=== PATIENT | male | born 1995 | race Caucasian/White ===

== ENCOUNTER 2017-06-13 20:23 | Emergency (ER) | payer OTHER ==
[~2017-06-13] VITALS: Ht 190.5 cm; Wt 87.4 kg
[2017-06-13 20:35] VITALS: TEMP 36.7; Ht 190.5 cm; Wt 87.4 kg
--- NOTE | 2017-06-13 21:04 | DIAGNOSTIC IMAGING REPORT ---
CERVICAL SPINE 5 VIEWS HISTORY: Left-sided Neck pain COMPARISON: None. FINDINGS: The cervical spine is visualized from C1 through the superior endplate of T1. There is no fracture. No subluxation. Disc spaces are preserved. Prevertebral soft tissues and the atlantodens interval are intact. Mild to moderate dextroscoliosis. IMPRESSION: No fracture or subluxation within the cervical spine. Mild to moderate dextroscoliosis which could be positional. Electronically signed by: Nilson Lopez M.D. 06/13/2017 9:03 PM Dictated Date/Time: 06/13/2017 9:01 PM
[2017-06-13] MEDS ORDERED: IBUPROFEN 800 MG TAB PO STA (21:17)
[2017-06-13] MEDS ORDERED: CYCL10TA6 PO (21:20)
[2017-06-13] MEDS ORDERED: FLEXERIL HOME PACK 10 MG VIAL PO ONE (21:30)
[2017-06-13 21:49] VITALS: BP 118/87; PULSE 62; O2SAT 99
--- NOTE | 2017-06-13 23:11 | EMERGENCY ROOM VISIT NOTE ---
History First contact with patient: 20:38 Chief Complaint: NECK INJURY Stated Complaint: HURT NECK PLAYING FOOTBALL, FALL History of Present Illness The patient is a 22 year old male who presents to the Emergency Room with complaints of a sided neck pain after injuring his neck is happy and playing football. The patient reports that he fell backward and did a reverse somersault. The patient reports that he initially did not have any neck discomfort, but is now starting to notice significant tightness. He denies any headache, nausea, back pain, chest pain or shortness of breath. He denies any other extremity injuries, and rates his discomfort an 8 out of 10. Review of Systems 10 system review was performed and was negative except for pertinent positives and negatives as indicated in history of present illness Past Medical/Surgical History Medical Problems: (1) Kidney disease (2) Skin problem Surgical Problems: (1) No history of previous surgery Family History FH: cancer Social History Smoking Status: Current Some Day Smoker Alcohol Use: occasionally Marital Status: single Housing Status: lives with friends Occupation Status: [employer] student Current/Historical Medications Scheduled Cyclobenzaprine Hcl (Flexeril), 10 MG PO TID Physical Exam Vital Signs Date Time Temp Pulse Resp B/P (MAP) Pulse Ox O2 Delivery O2 Flow Rate FiO2 06/13/17 21:49 62 20 118/87 99 06/13/17 20:35 36.7 121 18 138/79 Room Air Physical Exam CONSTITUTIONAL: Healthy and well nourished. Alert and oriented X 3 with positive affect. Patient appears in mild to moderate discomfort. HEENT: Normocephalic, atraumatic. Pupils equal, round and reactive. No epistaxis, subconjunctival hemorrhage, hemotympanum, raccoon's eyes or Fam sign. NECK: Examination shows the patient holding his head and a lateral bend position. He has notable tenderness and rigidity of the left cervical paraspinous muscle and trapezius. He has no focal tenderness through the central cervical spine. RESPIRATORY: Clear to auscultation bilaterally with no wheezing, crackles, rhonchi or stridor. CARDIOVASCULAR: Regular rate and rhythm with no murmurs, rubs or gallops. GASTROINTESTINAL: Bowel sounds present in all quadrants. MUSCULOSKELETAL: The patient has no worsening discomfort with range of motion of the left shoulder. No tenderness to palpation through the central thoracic spine or intrascapular region. Equal hand travel director bilaterally. Distal pulses are intact. INTEGUMENTARY: No rash or other significant dermatologic conditions noted. NEUROLOGIC: Upper extremities are sensory intact. Medical Decision & Procedures ER Provider Diagnostic Interpretation: My interpretation of cervical spine x-rays does not show any acute fractures, subluxation or lordotic reversal. Radiologist report is as follows: CERVICAL SPINE 5 VIEWS HISTORY: Left-sided Neck pain COMPARISON: None. FINDINGS: The cervical spine is visualized from C1 through the superior endplate of T1. There is no fracture. No subluxation. Disc spaces are preserved. Prevertebral soft tissues and the atlantodens interval are intact. Mild to moderate dextroscoliosis. IMPRESSION: No fracture or subluxation within the cervical spine. Mild to moderate dextroscoliosis which could be positional. Medications Administered Medications (Trade) Dose Ordered Sig/Alva Route Start Time Stop Time Status Last Admin Dose Admin Ibuprofen (Motrin Tab) 800 mg ONE STAT PO 06/13/17 21:17 06/13/17 21:18 DC 06/13/17 21:40 800 MG Cyclobenzaprine HCl (FLEXERIL 10MG Home Pack) 1 homepack UD ONCE PO 06/13/17 21:30 06/13/17 21:31 DC 06/13/17 21:41 1 HOMEPACK ED Course Patient history and physical exam were performed. Nurse's notes were reviewed. Vital signs were reviewed and were normal. X-rays of the cervical spine were normal. The patient was advised that his history and clinical exam are consistent with an acute cervical spasm. The patient was encouraged to initially apply ice to the neck, then moist heat as needed. A soft collar was applied for additional relief. The patient was administered ibuprofen 800 mg, and provided a home pack and prescription for Flexeril. He was encouraged to alternate ibuprofen and Tylenol for baseline pain relief. The patient was instructed to follow-up with his family doctor or [facility] if symptoms are not improving within the next several days. The patient voiced understanding of all discharge instructions, was happy with plan of care , and rated his discomfort a 5 out of 10 at the conclusion of my exam. Medical Decision Medication Reconcilliation Current Medication List: was personally reviewed by me Blood Pressure Screening Patient's blood pressure: Normal blood pressure Impression Primary Impression: Cervical paraspinous muscle spasm Departure Information Prescriptions Cyclobenzaprine Hcl (FLEXERIL) 10 Mg Tab 10 MG PO TID for spasm, #10 TAB Prov: Chente Oreilly PA 06/13/17 Referrals [facility] (PCP) Patient Instructions [facility]
== END 2017-06-13 21:51 | disposition home or self-care (01) ==
LOC: C.EDB 20:25 → C.EDD 21:51
DX: M62.838 Other muscle spasm (principal); F17.200 Nicotine dependence, unspecified, uncomplicated

== ENCOUNTER 2019-02-11 12:22 | Observation (INO) ==
[2019-02-11] MEDS ORDERED: ONDANSETRON INJ 2 MG/ML 2 ML VIAL IV STA ×2 (13:12→15:06)
[2019-02-11] MEDS ORDERED: SODIUM CHLORIDE 0.9% 1000ML 1,000 ML IV SCH (13:15)
--- NOTE | 2019-02-11 13:46 | XRay Report ---
XR chest 1V portable HISTORY: fever COMPARISON: None. FINDINGS: The lungs are clear. Cardiac silhouette is normal in size. No pleural effusions. No pneumot horax. IMPRESSION: No acute process. Electronically signed by: Nilson Lopez M.D. 02/11/2019 1:44 PM
[2019-02-11 13:47] LABS: iSTAT Creatinine 0.8 mg/dl (0.6-1.3); iSTAT Ionized Calcium 1.07 mmol/l (1.12-1.32); iSTAT Potassium 3.3 mEq/L (3.3-5.0)
[2019-02-11 13:53] LABS: Basophils # (auto) 0.01 K/uL (0-0.2); Basophils % (auto) 0.1 %; Hematocrit (blood only) 41.5 % (42-52); Hemoglobin 14.9 g/dL (14.0-18.0); Immature Granulocytes # (auto) 0.05 K/uL (0.00-0.02); Immature Granulocytes % (auto) 0.6 %; Lymphocytes % (auto) 6.3 %; Mean Corpuscular Hgb Conc 35.9 g/dL (32-36); Mean Corpuscular Volume 89.6 fL (80-100); Mean Platelet Volume 9.4 fL (7.4-10.4); Monocytes # (auto) 1.23 K/uL (0.11-0.59); Monocytes % (auto) 15.6 %; Neutrophils # (auto) 6.11 K/uL (1.4-6.5); Neutrophils % (auto) 77.4 %; Platelet Count 176 K/uL (130-400); RDW Coefficient of Variation 12.6 % (11.5-14.5); Red Blood Count 4.63 M/uL (4.7-6.1)
[2019-02-11 14:00] LABS: Albumin Level 3.5 gm/dl (3.4-5.0); BUN Creatinine Ratio 7.6 (10-20); Calcium 8.9 mg/dl (8.5-10.1); Creatinine Clr Calc Pharmacy 152.6 ml/min; Potassium 3.4 mmol/L (3.5-5.1)
[2019-02-11 14:16] LABS: Albumin Globulin Ratio 0.9 (0.9-2); Bilirubin,Total 0.4 mg/dl (0.2-1); Globulin 3.8 gm/dl (2.5-4.0); Total Protein 7.3 gm/dl (6.4-8.2)
[2019-02-11] MEDS ORDERED: IOVERSOL 100ml IV PRN (14:24)
--- NOTE | 2019-02-11 14:39 | CT Scan Report ---
CT abd pelvis IV con only CT DOSE: 439.59 mGy.cm HISTORY: Pain fever TECHNIQUE: Multiaxial CT images of the abdomen and pelvis were performed following the use of intrave nous contrast. A dose lowering technique was utilized adhering to the principles of ALARA. COMPARISON STUDY: 02/09/2019 FINDINGS: Mildly progressive wall edematous change of the bulk of the colon. Minimal pericolonic infi ltrative change which is similar compared to the prior study. Again is consistent with a nonspecific colitis. No evidence for abscess collection or obstruction. No evidence for pneumatosis or free air. Liver spleen and pancreas remain unremarkable. Kidneys are negative for hydronephrosis. IMPRESSION: 1. Mildly progressive colitis compared to the prior study. 2. Wall thickening is somewhat progressive throughout. 3. Appearance continues to be consistent with generalized nonspecific colitis. 4. No evidence for abscess collection or obstruction. The above report was generated using voice recognition software. It may contain grammatical, syntax or spelling errors. Electronically signed by: Daryn Gamez M.D. 02/11/2019 2:37 PM
[2019-02-11 15:01] LABS: Appearance Urine Clear (Clear); Bilirubin Urine Negative (Negative); Blood Urine Negative (Negative); Color Urine Yellow; Glucose Urine UA Negative (Negative); Ketones Urine Negative (Negative); Leukocyte Esterase Urine Negative (Negative); Nitrite Urine Negative (Negative); Protein Urine Negative (Negative); Specific Gravity Urine 1.022 (1.000-1.030); Urobilinogen Urine Negative (Negative)
[2019-02-11] MEDS ORDERED: KETOROLAC TROMETHAMINE 15 MG/ML VIAL IV STA (15:06)
--- NOTE | 2019-02-11 15:14 | Gastrointestinal Consultation ---
Date of Consultation February 11, 2019 Assessment & Plan (1) Colitis, acute: 24 year old male w/ abdominal pain, nausea, vomiting, diarrhea and fevers x [address] imaging w/ colitis - Consult medicine for observation - Stool studies - Cdiff - CRP/ESR - Antiemetics PRN - Analgesia PRN - Hold on ABX until c.diff results Thank you for allowing us to participate in the care of this patient. Please call with any acute changes, questions or concerns. Please see addendum below with additional recommendation from my supervising physician. Supervising Physician Co-Signing Physician Notes I have performed a history and physical examination of this patient and reviewed the electronic medical record. Specifically, on physical examination abdomen is soft and diffusely tender. Although this is most likely an infectious enteritis, presence of persistent vomiting is indication for admission with IV fluids. I have discussed the case with ANDRES Diego. The above note reflects my findings, conclusions, and recommendations. Robbie Patterson MD History of Present Illness Reason for Consultation: abd pain, fever, chills, diarrhea Requesting Physician: Donald Attending Physician: Donald History of Present Illness 24 year old male with no past medical history who presents to the ED for the second time this week w/ worsening abd pain, nausea, vomiting, inability to tolerate PO, diarrhea and fevers - GI asked to evaluate given persistent symptoms. Pt was seen and evalated, chart reviewed. Endorses abrupt onset symptoms starting on 02/08. Lower abd pain, constant. Assocaited w/ diarrhea, vomiting. Pain is worse at night. Does not improve w/BMor vomiting. Emesis has been bilous. No black or bloody vomit. Has had loose frequent stools x 1 week. Brown/green. Denies black/bloody or mucoid stools. No rash, skin changes. Does have non-specific MSK pain as well. No sick contacts. Ct: Mildly progressive colitis compared to the prior study. Wall thickening is somewhat progressive throughout. Appearance continues to be consistent with generalized nonspecific colitis. No evidence for abscess collection or obstruction. EGD: none Colonoscopy: none Allergies Allergy/AdvReac Type Severity Reaction Status Date / Time No Known Allergies Allergy Unverified 02/11/19 14:45 Home Medications Home Medications Medication Instructions Recorded Confirmed Type acetaminophen [Tylenol Extra 1,000 mg PO TID PRN 02/09/19 02/11/19 History Strength] loperamide [Imodium A-D] 2 mg PO UD PRN 02/09/19 02/11/19 History multivitamin 1 tab PO QAM 02/09/19 02/11/19 History ondansetron 4 mg PO Q8H PRN #10 tab 02/09/19 02/11/19 Rx ustekinumab [Stelara] 1 dose SUBCUT Q3M 02/09/19 02/11/19 History Patient History Medical History Kidney disease (Acute) Social History Preferred Language: Tajik Feels Safe at Home: Yes Smoking Status: Never smoker Review of Systems Constitutional: + fever and + chills; no fatigue, no weakness and no weight loss Respiratory: no cough, no dyspnea, no pain on inspiration and no wheezing Cardiovascular: no chest pain, no radiating jaw, neck or arm pain, no dyspnea on exertion and no palpitations Gastrointestinal: + abdominal pain, + nausea, + vomiting, + cramping, + change in bowel habits and + diarrhea/loose stools; no belching, no bloating, no early satiety, no heartburn, no coffee ground emesis, no hematemesis, no pain with swallowing, no dysphagia, no excessive flatulence, no change in stools, no constipation, no fecal incontinence, no constant urge to pass stools, no blood in stools, no melena and no problem reported Physical Exam Constitutional: + acute distress and + ill appearing Respiratory: normal respiratory effort, lungs clear to auscultation Cardiovascular: RRR, no murmur, no edema Gastrointestinal (Abdomen): Inspection/Auscultation: abdomen normal to inspection and normal bowel sounds; abdomen not distended Percussion/Palpation: + abdomen tender and abdomen soft; no guarding, abdomen not rigid and no abdominal mass Skin: no rashes, warm and dry Results & Data Vital Signs (Past 12 Hours) Vital Signs Temp Pulse Pulse Resp BP BP Pulse Ox 02/11/19 15:05 39.5 C H 96 H 18 145/80 H 98 02/11/19 14:05 99 H 20 109/61 97 02/11/19 12:32 38.4 C H 117 H 18 131/73 97 Laboratory Results 02/11/19 02/11/19 02/11/19 Range/Units 14:45 14:45 13:33 WBC (4.8-10.8) K/uL RBC (4.7-6.1) M/uL Hgb (14.0-18.0) g/dL POC Hgb 15.0 (14.0-18.0) g/dl Hct (42-52) % POC Hct 44 (42-52) % MCV (80-100) fL MCH (25-34) pg MCHC (32-36) g/dL RDW Std Deviation (36.4-46.3) fL RDW Coeff of Mckayla (11.5-14.5) % Plt Count (130-400) K/uL MPV (7.4-10.4) fL Immature Gran % (Auto) % Neut % (Auto) % Lymph % (Auto) % [place] % (Auto) % Eos % (Auto) % Baso % (Auto) % Immature Gran # (Auto) (0.00-0.02) K/uL Neut # (Auto) (1.4-6.5) K/uL Lymph # (Auto) (1.2-3.4) K/uL [place] # (Auto) (0.11-0.59) K/uL Eos # (Auto) (0-0.5) K/uL Baso # (Auto) (0-0.2) K/uL ESR POC Sodium 135 (135-144) mEq/L Sodium (136-145) mmol/L POC Potassium 3.3 (3.3-5.0) mEq/L Potassium (3.5-5.1) mmol/L POC Chloride 96 L (101-112) mEq/L Chloride (98-107) mmol/L Carbon Dioxide (21-32) mmol/L POC Total CO2 22 L (24-31) mEq/l Anion Gap (3-11) POC Anion Gap 21.0 (16-25) mmol/L POC BUN 6 L (7-18) mg/dl BUN (7-18) mg/dl Creatinine (0.6-1.4) mg/dl POC Creatinine 0.8 (0.6-1.3) mg/dl Est Cr Clr Drug Dosing ml/min Est GFR ( Amer) Est GFR (Non-Af Amer) BUN/Creatinine Ratio (10-20) Glucose (70-99) mg/dl POC Glucose (other) 117 H (70-99) mg/dl Calcium (8.5-10.1) mg/dl POC Ioniz Calcium Edwin 1.07 L (1.12-1.32) mmol/l Total Bilirubin (0.2-1) mg/dl AST (15-37) U/L ALT (12-78) U/L Alkaline Phosphatase (45-117) U/L C-Reactive Protein Total Protein (6.4-8.2) gm/dl Albumin (3.4-5.0) gm/dl Globulin (2.5-4.0) gm/dl Albumin/Globulin Ratio (0.9-2) Lipase (73-393) U/L Urine Color Yellow Urine Appearance Clear (Clear) Urine pH 8.0 H (4.5-7.5) Ur Specific Blanca 1.022 (1.000-1.030) Urine Protein Negative (Negative) Urine Glucose (UA) Negative (Negative) Urine Ketones Negative (Negative) Urine Blood Negative (Negative) Urine Nitrite Negative (Negative) Urine Bilirubin Negative (Negative) Urine Urobilinogen Negative (Negative) Ur Leukocyte Esterase Negative (Negative) Monoscreen Pending 02/11/19 02/11/19 02/11/19 Range/Units 13:24 13:24 13:24 WBC (4.8-10.8) K/uL RBC (4.7-6.1) M/uL Hgb (14.0-18.0) g/dL POC Hgb (14.0-18.0) g/dl Hct (42-52) % POC Hct (42-52) % MCV (80-100) fL MCH (25-34) pg MCHC (32-36) g/dL RDW Std Deviation (36.4-46.3) fL RDW Coeff of Mckayla (11.5-14.5) % Plt Count (130-400) K/uL MPV (7.4-10.4) fL Immature Gran % (Auto) % Neut % (Auto) % Lymph % (Auto) % [place] % (Auto) % Eos % (Auto) % Baso % (Auto) % Immature Gran # (Auto) (0.00-0.02) K/uL Neut # (Auto) (1.4-6.5) K/uL Lymph # (Auto) (1.2-3.4) K/uL [place] # (Auto) (0.11-0.59) K/uL Eos # (Auto) (0-0.5) K/uL Baso # (Auto) (0-0.2) K/uL ESR Pending POC Sodium (135-144) mEq/L Sodium 134 L (136-145) mmol/L POC Potassium (3.3-5.0) mEq/L Potassium 3.4 L (3.5-5.1) mmol/L POC Chloride (101-112) mEq/L Chloride 102 (98-107) mmol/L Carbon Dioxide 23 (21-32) mmol/L POC Total CO2 (24-31) mEq/l Anion Gap 9.0 (3-11) POC Anion Gap (16-25) mmol/L POC BUN (7-18) mg/dl BUN 7 (7-18) mg/dl Creatinine 0.90 (0.6-1.4) mg/dl POC Creatinine (0.6-1.3) mg/dl Est Cr Clr Drug Dosing 152.6 ml/min Est GFR ( Amer) 139.0 Est GFR (Non-Af Amer) 120.0 BUN/Creatinine Ratio 7.6 L (10-20) Glucose 111 H (70-99) mg/dl POC Glucose (other) (70-99) mg/dl Calcium 8.9 (8.5-10.1) mg/dl POC Ioniz Calcium Edwin (1.12-1.32) mmol/l Total Bilirubin 0.4 (0.2-1) mg/dl AST 11 L (15-37) U/L ALT 20 (12-78) U/L Alkaline Phosphatase 51 (45-117) U/L C-Reactive Protein Cancelled Pending Total Protein 7.3 (6.4-8.2) gm/dl Albumin 3.5 (3.4-5.0) gm/dl Globulin 3.8 (2.5-4.0) gm/dl Albumin/Globulin Ratio 0.9 (0.9-2) Lipase 71 L (73-393) U/L Urine Color Urine Appearance (Clear) Urine pH (4.5-7.5) Ur Specific Blanca (1.000-1.030) Urine Protein (Negative) Urine Glucose (UA) (Negative) Urine Ketones (Negative) Urine Blood (Negative) Urine Nitrite (Negative) Urine Bilirubin (Negative) Urine Urobilinogen (Negative) Ur Leukocyte Esterase (Negative) Monoscreen 02/11/19 Range/Units 13:24 WBC 7.90 (4.8-10.8) K/uL RBC 4.63 L (4.7-6.1) M/uL Hgb 14.9 (14.0-18.0) g/dL POC Hgb (14.0-18.0) g/dl Hct 41.5 L (42-52) % POC Hct (42-52) % MCV 89.6 (80-100) fL MCH 32.2 (25-34) pg MCHC 35.9 (32-36) g/dL RDW Std Deviation 41.0 (36.4-46.3) fL RDW Coeff of Mckayla 12.6 (11.5-14.5) % Plt Count 176 (130-400) K/uL MPV 9.4 (7.4-10.4) fL Immature Gran % (Auto) 0.6 % Neut % (Auto) 77.4 % Lymph % (Auto) 6.3 % [place] % (Auto) 15.6 % Eos % (Auto) 0.0 % Baso % (Auto) 0.1 % Immature Gran # (Auto) 0.05 H (0.00-0.02) K/uL Neut # (Auto) 6.11 (1.4-6.5) K/uL Lymph # (Auto) 0.50 L (1.2-3.4) K/uL [place] # (Auto) 1.23 H (0.11-0.59) K/uL Eos # (Auto) 0.00 (0-0.5) K/uL Baso # (Auto) 0.01 (0-0.2) K/uL ESR POC Sodium (135-144) mEq/L Sodium (136-145) mmol/L POC Potassium (3.3-5.0) mEq/L Potassium (3.5-5.1) mmol/L POC Chloride (101-112) mEq/L Chloride (98-107) mmol/L Carbon Dioxide (21-32) mmol/L POC Total CO2 (24-31) mEq/l Anion Gap (3-11) POC Anion Gap (16-25) mmol/L POC BUN (7-18) mg/dl BUN (7-18) mg/dl Creatinine (0.6-1.4) mg/dl POC Creatinine (0.6-1.3) mg/dl Est Cr Clr Drug Dosing ml/min Est GFR ( Amer) Est GFR (Non-Af Amer) BUN/Creatinine Ratio (10-20) Glucose (70-99) mg/dl POC Glucose (other) (70-99) mg/dl Calcium (8.5-10.1) mg/dl POC Ioniz Calcium Edwin (1.12-1.32) mmol/l Total Bilirubin (0.2-1) mg/dl AST (15-37) U/L ALT (12-78) U/L Alkaline Phosphatase (45-117) U/L C-Reactive Protein Total Protein (6.4-8.2) gm/dl Albumin (3.4-5.0) gm/dl Globulin (2.5-4.0) gm/dl Albumin/Globulin Ratio (0.9-2) Lipase (73-393) U/L Urine Color Urine Appearance (Clear) Urine pH (4.5-7.5) Ur Specific Blanca (1.000-1.030) Urine Protein (Negative) Urine Glucose (UA) (Negative) Urine Ketones (Negative) Urine Blood (Negative) Urine Nitrite (Negative) Urine Bilirubin (Negative) Urine Urobilinogen (Negative) Ur Leukocyte Esterase (Negative) Monoscreen
[2019-02-11 15:23] LABS: C Reactive Protein 7.99 mg/dl (0-0.29)
--- NOTE | 2019-02-11 15:49 | Emergency Department Note ---
Entered by Eda Moore acting as a scribe for Robbie Bennett DO History of Present Illness General Chief complaint: Fever Stated complaint: FEVER - VOMITING - NAUSEA - DIARRHEA (4TH DAY) Time Seen by Provider: 02/11/19 13:04 Source: patient History of Present Illness Provider complaint: nausea and vomiting Onset (ago): hour(s) (0130 this morning) Location: left and right Maximum Pain Intensity: 7 Associated symptoms: + denies other symptoms (denies back pain or blood in urine ), + fever/chills and + other (diarrhea) The patient is a 24 year old male who presents to the Emergency Department with complaints of nausea and vomiting beginning at 0130 this morning. The patient rates his discomfort at a 7/10. He states that 5 days ago he developed a fever, nausea, vomiting, and diarrhea. The patient states that he has been unable to keep fluids down. He reports that he last vomited 1 hour ago and last had an episode of diarrhea 3 days ago. He reports having abdominal pain but denies having back pain or blood in his urine. The patient states that he traveled to [place] 2 months ago but otherwise denies recent travel. He reports no active medical problems and states that he does not take medications daily. He reports that he drinks twice per week but denies tobacco use. The patient states that he did not see S today. Home Medications Home Medications Medication Instructions Recorded Confirmed Type acetaminophen [Tylenol Extra 1,000 mg PO TID PRN 02/09/19 02/11/19 History Strength] loperamide [Imodium A-D] 2 mg PO UD PRN 02/09/19 02/11/19 History multivitamin 1 tab PO QAM 02/09/19 02/11/19 History ondansetron 4 mg PO Q8H PRN #10 tab 02/09/19 02/11/19 Rx ustekinumab [Stelara] 1 dose SUBCUT Q3M 02/09/19 02/11/19 History Allergies Allergy/AdvReac Type Severity Reaction Status Date / Time No Known Allergies Allergy Unverified 02/11/19 14:45 Past Med/Surg History Medical History Kidney disease (Acute) Social History Preferred Language: Bots[place] Feels Safe at Home: Yes Smoking Status: Never smoker Review of Systems See HPI for pertinent positives & negatives. and A total of 10 systems reviewed and were otherwise negative Physical Exam Vital Signs Vital Signs - 24 hr 02/11/19 12:32 02/11/19 14:05 02/11/19 15:05 Temperature 38.4 C H 39.5 C H Temperature Source Oral Oral Sepsis Recent Fever Within 48 Hours Yes Sepsis New/Unexplained Change in Mental Status No Sepsis Action Taken by Nursing No Action Required Pulse Rate 117 H Pulse Rate [Apical] 99 H 96 H Respiratory Rate 18 20 18 Respiratory Effort / Characteristics Non-Labored Spontaneous Respiratory Depth Normal Respiratory Pattern Regular Blood Pressure 131/73 Blood Pressure [Left Arm] 109/61 145/80 H Blood Pressure Mean 92 Blood Pressure Mean [Left Arm] 77 101 Blood Pressure Position Sitting Pulse Oximetry 97 97 98 Oxygen Delivery Method Room Air Room Air Room Air 02/11/19 15:58 Temperature Temperature Source Sepsis Recent Fever Within 48 Hours Sepsis New/Unexplained Change in Mental Status Sepsis Action Taken by Nursing Pulse Rate Pulse Rate [Apical] 99 H Respiratory Rate 20 Respiratory Effort / Characteristics Respiratory Depth Respiratory Pattern Blood Pressure Blood Pressure [Left Arm] 136/78 Blood Pressure Mean Blood Pressure Mean [Left Arm] 97 Blood Pressure Position Pulse Oximetry 95 Oxygen Delivery Method Room Air GENERAL: Patient is awake, alert, and in no acute distress.Patient is resting comfortably and showing no signs of anxiety EYES: The conjunctivae are clear. The pupils are round and reactive. EARS, NOSE, MOUTH AND THROAT: The nose is without any evidence of any deformity. Mucous membranes are moist.Tongue is midline NECK: The neck is nontender and supple. RESPIRATORY: Normal respiratory effort is noted. There is no evidence of wheezin g rhonchi or rales to auscultation. CARDIOVASCULAR: Tachycardic rate and regular rhythm noted. There no murmurs rubs or gallops normal S1 normal S2 GASTROINTESTINAL: The abdomen is soft with lower abdominal tenderness to palpation. No guarding or ridigity. Bowel sounds are present in all quadrants. Abdomen is nontender. MUSCULOSKELETAL/EXTREMITIES: There is no evidence of gross deformity. Full range of motion is noted in the hips and shoulders. SKIN: There is no obvious evidence of any rash. There are no petechiae, pallor or cyanosis noted. NEUROLOGIC: Patient is awake alert and oriented x3. Strength is symmetric. Patellar reflexes are 2+ bilaterally. Course 1306: The patient was evaluated in room A2. A history and physical were performed. 1454: I discussed the patient's case with Teresa JAEGER who will come see the patient. She also recommended stool studies. 1522: Dr. Yost will come see the patient. 1547: D/W Jess Pang PA-C. [facility] hospitalist group will evaluate the patient in the emergency department for further management and disposition. Consultations Consultation #1: Teresa JAEGER Time: 14:54 Consultation #2: Jess Pang PA-C Time: 15:46 Administered Medications Ioversol (Optiray 320 100ml) 94 ml IV ONCE PRN PRN Reason: Interaction Checking Stop: 02/15/19 14:23 Last Admin: 02/11/19 14:25 Dose: 94 ml Documented by: [id number] Discontinued Medications Sodium Chloride (Nss 1000ml) 1,000 mls @ 999 mls/hr IV .Q1H1M BILLIE Stop: 02/11/19 14:15 Last Infusion: 02/11/19 14:30 Dose: 0 mls/hr Documented by: [id number] Admin: 02/11/19 13:29 Dose: 999 mls/hr Documented by: [id number] Ketorolac Tromethamine (Toradol) 15 mg IV NOW STA Stop: 02/11/19 15:07 Last Admin: 02/11/19 15:11 Dose: 15 mg Documented by: [id number] Ondansetron HCl (Zofran) 4 mg IV NOW STA Stop: 02/11/19 13:13 Last Admin: 02/11/19 13:29 Dose: 4 mg Documented by: [id number] Ondansetron HCl (Zofran) 4 mg IV NOW STA Stop: 02/11/19 15:07 Last Admin: 02/11/19 15:11 Dose: 4 mg Documented by: [id number] Medical Decision Making Differential Diagnosis Differential diagnosis: Etiologies such as gastroenteritis, food borne illness, infections, appendicitis, diverticulitis, inflammatory bowel disease, obstruction, GI bleed, biliary pathology, cardiac process, intracranial process, as well as others were entertained. Medical Records Attestation: I reviewed the patient's medical records. Home Medications Current Medication List: was personally reviewed by me Laboratory Data Attestation: I reviewed the patient's lab results. Result diagrams: 02/11/19 13:24 02/11/19 13:24 Lab Results 02/11/19 02/11/19 02/11/19 Range/Units 13:24 13:24 13:24 WBC 7.90 (4.8-10.8) K/uL RBC 4.63 L (4.7-6.1) M/uL Hgb 14.9 (14.0-18.0) g/dL POC Hgb (14.0-18.0) g/dl Hct 41.5 L (42-52) % POC Hct (42-52) % MCV 89.6 (80-100) fL MCH 32.2 (25-34) pg MCHC 35.9 (32-36) g/dL RDW Std Deviation 41.0 (36.4-46.3) fL RDW Coeff of Mckayla 12.6 (11.5-14.5) % Plt Count 176 (130-400) K/uL MPV 9.4 (7.4-10.4) fL Immature Gran % (Auto) 0.6 % Neut % (Auto) 77.4 % Lymph % (Auto) 6.3 % [place] % (Auto) 15.6 % Eos % (Auto) 0.0 % Baso % (Auto) 0.1 % Immature Gran # (Auto) 0.05 H (0.00-0.02) K/uL Neut # (Auto) 6.11 (1.4-6.5) K/uL Lymph # (Auto) 0.50 L (1.2-3.4) K/uL [place] # (Auto) 1.23 H (0.11-0.59) K/uL Eos # (Auto) 0.00 (0-0.5) K/uL Baso # (Auto) 0.01 (0-0.2) K/uL ESR 21 H (0-14) mm/hr POC Sodium (135-144) mEq/L Sodium 134 L (136-145) mmol/L POC Potassium (3.3-5.0) mEq/L Potassium 3.4 L (3.5-5.1) mmol/L POC Chloride (101-112) mEq/L Chloride 102 (98-107) mmol/L Carbon Dioxide 23 (21-32) mmol/L POC Total CO2 (24-31) mEq/l Anion Gap 9.0 (3-11) POC Anion Gap (16-25) mmol/L POC BUN (7-18) mg/dl BUN 7 (7-18) mg/dl Creatinine 0.90 (0.6-1.4) mg/dl POC Creatinine (0.6-1.3) mg/dl Est Cr Clr Drug Dosing 152.6 ml/min Est GFR ( Amer) 139.0 Est GFR (Non-Af Amer) 120.0 BUN/Creatinine Ratio 7.6 L (10-20) Glucose 111 H (70-99) mg/dl POC Glucose (other) (70-99) mg/dl Calcium 8.9 (8.5-10.1) mg/dl POC Ioniz Calcium Edwin (1.12-1.32) mmol/l Total Bilirubin 0.4 (0.2-1) mg/dl AST 11 L (15-37) U/L ALT 20 (12-78) U/L Alkaline Phosphatase 51 (45-117) U/L C-Reactive Protein 7.99 H (0-0.29) mg/dl Total Protein 7.3 (6.4-8.2) gm/dl Albumin 3.5 (3.4-5.0) gm/dl Globulin 3.8 (2.5-4.0) gm/dl Albumin/Globulin Ratio 0.9 (0.9-2) Lipase 71 L (73-393) U/L Urine Color Urine Appearance (Clear) Urine pH (4.5-7.5) Ur Specific [place] (1.000-1.030) Urine Protein (Negative) Urine Glucose (UA) (Negative) Urine Ketones (Negative) Urine Blood (Negative) Urine Nitrite (Negative) Urine Bilirubin (Negative) Urine Urobilinogen (Negative) Ur Leukocyte Esterase (Negative) Monoscreen (Negative) 02/11/19 02/11/19 02/11/19 Range/Units 13:24 13:33 14:45 WBC (4.8-10.8) K/uL RBC (4.7-6.1) M/uL Hgb (14.0-18.0) g/dL POC Hgb 15.0 (14.0-18.0) g/dl Hct (42-52) % POC Hct 44 (42-52) % MCV (80-100) fL MCH (25-34) pg MCHC (32-36) g/dL RDW Std Deviation (36.4-46.3) fL RDW Coeff of Mckayla (11.5-14.5) % Plt Count (130-400) K/uL MPV (7.4-10.4) fL Immature Gran % (Auto) % Neut % (Auto) % Lymph % (Auto) % [place] % (Auto) % Eos % (Auto) % Baso % (Auto) % Immature Gran # (Auto) (0.00-0.02) K/uL Neut # (Auto) (1.4-6.5) K/uL Lymph # (Auto) (1.2-3.4) K/uL [place] # (Auto) (0.11-0.59) K/uL Eos # (Auto) (0-0.5) K/uL Baso # (Auto) (0-0.2) K/uL ESR (0-14) mm/hr POC Sodium 135 (135-144) mEq/L Sodium (136-145) mmol/L POC Potassium 3.3 (3.3-5.0) mEq/L Potassium (3.5-5.1) mmol/L POC Chloride 96 L (101-112) mEq/L Chloride (98-107) mmol/L Carbon Dioxide (21-32) mmol/L POC Total CO2 22 L (24-31) mEq/l Anion Gap (3-11) POC Anion Gap 21.0 (16-25) mmol/L POC BUN 6 L (7-18) mg/dl BUN (7-18) mg/dl Creatinine (0.6-1.4) mg/dl POC Creatinine 0.8 (0.6-1.3) mg/dl Est Cr Clr Drug Dosing ml/min Est GFR ( Amer) Est GFR (Non-Af Amer) BUN/Creatinine Ratio (10-20) Glucose (70-99) mg/dl POC Glucose (other) 117 H (70-99) mg/dl Calcium (8.5-10.1) mg/dl POC Ioniz Calcium Edwin 1.07 L (1.12-1.32) mmol/l Total Bilirubin (0.2-1) mg/dl AST (15-37) U/L ALT (12-78) U/L Alkaline Phosphatase (45-117) U/L C-Reactive Protein Cancelled (0-0.29) mg/dl Total Protein (6.4-8.2) gm/dl Albumin (3.4-5.0) gm/dl Globulin (2.5-4.0) gm/dl Albumin/Globulin Ratio (0.9-2) Lipase (73-393) U/L Urine Color Urine Appearance (Clear) Urine pH (4.5-7.5) Ur Specific [place] (1.000-1.030) Urine Protein (Negative) Urine Glucose (UA) (Negative) Urine Ketones (Negative) Urine Blood (Negative) Urine Nitrite (Negative) Urine Bilirubin (Negative) Urine Urobilinogen (Negative) Ur Leukocyte Esterase (Negative) Monoscreen Negative (Negative) 02/11/19 Range/Units 14:45 WBC (4.8-10.8) K/uL RBC (4.7-6.1) M/uL Hgb (14.0-18.0) g/dL POC Hgb (14.0-18.0) g/dl Hct (42-52) % POC Hct (42-52) % MCV (80-100) fL MCH (25-34) pg MCHC (32-36) g/dL RDW Std Deviation (36.4-46.3) fL RDW Coeff of Mckayla (11.5-14.5) % Plt Count (130-400) K/uL MPV (7.4-10.4) fL Immature Gran % (Auto) % Neut % (Auto) % Lymph % (Auto) % [place] % (Auto) % Eos % (Auto) % Baso % (Auto) % Immature Gran # (Auto) (0.00-0.02) K/uL Neut # (Auto) (1.4-6.5) K/uL Lymph # (Auto) (1.2-3.4) K/uL [place] # (Auto) (0.11-0.59) K/uL Eos # (Auto) (0-0.5) K/uL Baso # (Auto) (0-0.2) K/uL ESR (0-14) mm/hr POC Sodium (135-144) mEq/L Sodium (136-145) mmol/L POC Potassium (3.3-5.0) mEq/L Potassium (3.5-5.1) mmol/L POC Chloride (101-112) mEq/L Chloride (98-107) mmol/L Carbon Dioxide (21-32) mmol/L POC Total CO2 (24-31) mEq/l Anion Gap (3-11) POC Anion Gap (16-25) mmol/L POC BUN (7-18) mg/dl BUN (7-18) mg/dl Creatinine (0.6-1.4) mg/dl POC Creatinine (0.6-1.3) mg/dl Est Cr Clr Drug Dosing ml/min Est GFR ( Amer) Est GFR (Non-Af Amer) BUN/Creatinine Ratio (10-20) Glucose (70-99) mg/dl POC Glucose (other) (70-99) mg/dl Calcium (8.5-10.1) mg/dl POC Ioniz Calcium Edwin (1.12-1.32) mmol/l Total Bilirubin (0.2-1) mg/dl AST (15-37) U/L ALT (12-78) U/L Alkaline Phosphatase (45-117) U/L C-Reactive Protein (0-0.29) mg/dl Total Protein (6.4-8.2) gm/dl Albumin (3.4-5.0) gm/dl Globulin (2.5-4.0) gm/dl Albumin/Globulin Ratio (0.9-2) Lipase (73-393) U/L Urine Color Yellow Urine Appearance Clear (Clear) Urine pH 8.0 H (4.5-7.5) Ur Specific [place] 1.022 (1.000-1.030) Urine Protein Negative (Negative) Urine Glucose (UA) Negative (Negative) Urine Ketones Negative (Negative) Urine Blood Negative (Negative) Urine Nitrite Negative (Negative) Urine Bilirubin Negative (Negative) Urine Urobilinogen Negative (Negative) Ur Leukocyte Esterase Negative (Negative) Monoscreen (Negative) Imaging Data Radiologist's Impression: Radiology results as stated below per my review and the radiologist's interpretation: XR chest 1V portable HISTORY: fever COMPARISON: None. FINDINGS: The lungs are clear. Cardiac silhouette is normal in size. No pleural effusions. No pneumothorax. IMPRESSION: No acute process. Electronically signed by: Nilson Lopez M.D. 02/11/2019 1:[address] abd pelvis IV con only CT DOSE: 439.59 mGy.cm HISTORY: Pain fever TECHNIQUE: Multiaxial CT images of the abdomen and pelvis were performed following the use of intravenous contrast. A dose lowering technique was utilized adhering to the principles of ALARA. COMPARISON STUDY: 02/09/2019 FINDINGS: Mildly progressive wall edematous change of the bulk of the colon. Minimal pericolonic infiltrative change which is similar compared to the prior study. Again is consistent with a nonspecific colitis. No evidence for abscess collection or obstruction. No evidence for pneumatosis or free air. Liver spleen and pancreas remain unremarkable. Kidneys are negative for hy dronephrosis. IMPRESSION: 1. Mildly progressive colitis compared to the prior study. 2. Wall thickening is somewhat progressive throughout. 3. Appearance continues to be consistent with generalized nonspecific colitis. 4. No evidence for abscess collection or obstruction. The above report was generated using voice recognition software. It may contain grammatical, syntax or spelling errors. Electronically signed by: Daryn Gamez M.D. 02/11/2019 2:37 PM Blood Pressure Blood Pressure Findings: Normal blood pressure MDM Narrative The patient is a 24-year-old male who presented to the emergency department for a second time this week for an evaluation of the nausea vomiting loose bowel mo vements and now worsening abdominal pain and fever. The patient was seen previously in our emergency department for similar complaints. At that time he was feeling much better and was discharged home. The patient did have an elevated temperature in the emergency department today. For this reason a repeat CAT scan was obtained to ensure there was no changes which may require surgical intervention. He did have significant tenderness but he had no guarding. I discussed the patient's laboratory and radiographic studies with him. I also discussed his case with the on-call [facility] hospitalist group. They have agreed to evaluate the patient in the emergency department for further management and disposition. The patient was also evaluated by the [facility] gastroenterology group. They do feel the patient's condition may warrant further inpatient work-up as well as treatment. I offered to discuss the patient's findings with his family members but at this time he would prefer to relay the findings to his parents on his own. Impression & Plan Nausea and vomiting, Colitis, Dehydration, Fever Discharge Plan Visit Data Chief Complaint: Fever Stated Complaint: FEVER - VOMITING - NAUSEA - DIARRHEA (4TH DAY) ED Provider: Robbie Bennett Discharge Problem: Nausea and vomiting, Colitis, Dehydration, Fever Forms Stand Alone Forms: My [facility] Prescriptions Prescriptions: No Action acetaminophen [Tylenol Extra Strength] 500 mg Tablet 1,000 mg PO TID PRN (Reason: Fever Or Pain) RF: 0 Stelara 45 mg/0.5 mL syringe 1 dose subcut Q3M RF: 0 multivitamin Tablet 1 tab PO QAM RF: 0 loperamide [Imodium A-D] 1 mg/7.5 mL Liquid 2 mg PO UD PRN (Reason: Diarrhea) RF: 0 ondansetron 4 mg tablet,disintegrating 4 mg PO Q8H PRN (Reason: nausea and vomiting) Qty: 10 RF: 0 Discharge Problem: Nausea and vomiting Qualifiers: Vomiting type: unspecified Vomiting Intractability: intractable Qualified Code(s): R11.2 - Nausea with vomiting, unspecified Fever Qualifiers: Fever type: unspecified Qualified Code(s): R50.9 - Fever, unspecified The scribe's documentation has been prepared under my direction and personally reviewed by me in its entirety. I confirm that the note above accurately reflects all work, treatment, procedures, and medical decision making performed by me.
--- NOTE | 2019-02-11 17:17 | History & Physical Report ---
Date of Service February 11, 2019 Assessment & Plan (1) Nonspecific colitis: (2) Fever: (3) Nausea and vomiting: This is a 24yo M with a PMH of psoriasis who is presenting with lower abdominal pain, fever, chills, nausea and vomiting x 5 days and was found to have non-specific colitis. -Febrile at 39.5, tachycardic at 117, non-toxic appearance -No leukocytosis, potassium slightly low at 3.3, LFTs unremarkable -CT abd/pelvis with mildly progressing colitis with wall thickening somewhat p rogressively throughout -Evaluated by GI service, who suspect infectious colitis -Stool cultures, C. diff, blood cultures ordered. CPR, ESR ordered. -No antibiotics until C diff results, per GI -IV fluids (NSS + 20 mEq kcl), antiemetics, clear liquids as tolerated -NPO after midnight in case of scope (4) Psoriasis: Stelara injection Q3 months -Due in 10 days DVT Ppx: Teds Code status: FULL PCP: Unassigned Dispo: Observaton med/surg. Plan to return home once medically stable. Patient seen in collaboration with Dr. Stevens. Please see addendum. History of Present Illness Chief Complaint: Lower abd pain, nausea, vomiting, diarrhea Primary Care Provider: NO PCP This is a 24yo M with a PMH of psoriasis who is presenting with lower abdominal pain, fever, chills, nausea and vomiting x 5 days. Patient developed sudden onset symptoms of fever and diarrhea 5 days ago, followed by nausea, vomiting and cramping abdominal pain. Episodes of emesis are bilious and diarrhea is described as clear, no blood or mucus. Experiencing cramping lower abdominal pain that is worse prior to defecation and then improves. Was seen in ED 2 days ago and was given IV fluids and antiemetics. [place] better yesterday until 9pm, when fever returned. Endorsing 25 small episodes of diarrhea since last night. Presenting with fever of 39.5 and tachycardia of 117. No leukocytosis. Repeat CT abd/pelvis with mildly progressing colitis with wall thickening somewhat progressively throughout. Non-specific colitis, no evidence of abscess or obstruction. Was evaluated by GI service, who want to observe patient overnight and hydrate while obtaining stool and c. diff cultures. Feel that most likely this is infectious enterocolitis. Denies lightheadedness, headache, cough, chest pain, SOB, dysuria. Allergies Allergy/AdvReac Type Severity Reaction Status Date / Time No Known Allergies Allergy Unverified 02/11/19 14:45 Home Medications Home Medications Medication Instructions Recorded Confirmed Type acetaminophen [Tylenol Extra 1,000 mg PO TID PRN 02/09/19 02/11/19 History Strength] loperamide [Imodium A-D] 2 mg PO UD PRN 02/09/19 02/11/19 History multivitamin 1 tab PO QAM 02/09/19 02/11/19 History ondansetron 4 mg PO Q8H PRN #10 tab 02/09/19 02/11/19 Rx ustekinumab [Stelara] 1 dose SUBCUT Q3M 02/09/19 02/11/19 History Past Med/Surg History Family History Other No pertinent family history Social History Preferred Language: Kinyarwanda Communication Ability: Effective Beliefs That Will Affect Care: None Current Living Situation: Other Current Living Situation Comment: Roommates current occupational status: student Other Information That Helps Us Care for You: No Feels Safe at Home: Yes Safety Concerns: Feels Safe At This Time Smoking Status: Never smoker Hx Alcohol Use: Yes Alcohol type: beer Hx Substance Use: No Review of Systems Review of Systems: At least ten systems reviewed and negative except as noted in the HPI. Physical Exam Physical Exam: General Appearance: WD/WN, appears acutely ill Head: normocephalic, atraumatic Eyes: normal inspection, PERRL, EOMI ENT: hearing grossly normal, pharynx normal (dry mucous membranes) Neck: supple, no JVD, no adenopathy Respiratory/Chest: lungs clear to auscultation. No wheezes, rales or rhonci. No respiratory distress or accessory muscle use Cardiovascular: regular rate, rhythm, no murmur, normal peripheral pulses Abdomen/GI: normal bowel sounds, soft, tender to palpation in LLQ, RLQ. No guarding Extremities/Musculoskelatal: normal inspection, no calf tenderness, normal capillary refill, no pedal edema Neurologic/Psych: alert, normal mood/affect, oriented x 3 Skin: normal color, warm/dry Results & Data Vital Signs (Past 12 Hours) Vital Signs Temp Pulse Pulse Resp BP BP Pulse Ox 02/11/19 15:58 99 H 20 136/78 95 02/11/19 15:05 39.5 C H 96 H 18 145/80 H 98 02/11/19 14:05 99 H 20 109/61 97 02/11/19 12:32 38.4 C H 117 H 18 131/73 97 Laboratory Results Short CBC 02/11/19 Range/Units 13:24 WBC 7.90 (4.8-10.8) K/uL Hgb 14.9 (14.0-18.0) g/dL Hct 41.5 L (42-52) % Plt Count 176 (130-400) K/uL BMP 02/11/19 13:24 Sodium 134 L Potassium 3.4 L Chloride 102 Carbon Dioxide 23 BUN 7 Creatinine 0.90 Glucose 111 H Calcium 8.9 Liver Function 02/11/19 Range/Units 13:24 Total Bilirubin 0.4 (0.2-1) mg/dl AST 11 L (15-37) U/L ALT 20 (12-78) U/L Alkaline Phosphatase 51 (45-117) U/L Albumin 3.5 (3.4-5.0) gm/dl Urine 02/11/19 Range/Units 14:45 Urine Color Yellow Urine Appearance Clear (Clear) Urine pH 8.0 H (4.5-7.5) Ur Specific [place] 1.022 (1.000-1.030) Urine Protein Negative (Negative) Urine Glucose (UA) Negative (Negative) Diagnostic Findings CXR: IMPRESSION: No acute process. CT abd/pelvis: IMPRESSION: 1. Mildly progressive colitis compared to the prior study. 2. Wall thickening is somewhat progressive throughout. 3. Appearance continues to be consistent with generalized nonspecific colitis. 4. No evidence for abscess collection or obstruction. Supervising Physician Co-Signing Physician Notes Patient is a 24-year-old male with history of psoriasis presents with history of lower abdominal pain, fever, chills, nausea and vomiting since 5 days duration. Denies any history of blood in stools. Please review HPI for complete details of presentation. CT abdomen suggestive of mildly progressive colitis compared to prior study, wall thickening, findings suggestive of nonspecific colitis, no evidence of abscess collection or obstruction. Stool for C. difficile is negative. Patient on exam is moderately built and nourished, no apparent distress, normocephalic atraumatic, lungs are clear to auscultation, S1-S2, tachycardia, no murmur, abdomen soft, generalized tenderness, no guarding or rigidity, no pedal edema, grossly no neurological focal deficits. Patient is admitted for management of acute colitis. Will start on IV fluids, IV antibiotics. Appreciate gastroenterology input and recommendations. Clear liquid diet, advance as tolerated. GI is consulted. I personally reviewed the record. Patient is interviewed and examined at bedside. Patient's care is coordinated with Sonia Lopez PA-C. Please refer to the documentation above for details of patient's presentation and for discussion of other issues. (1) Fever Fever type: unspecified Qualified Code(s): R50.9 - Fever, unspecified (2) Nausea and vomiting Vomiting Intractability: intractable Vomiting type: unspecified Qualified Code(s): R11.2 - Nausea with vomiting, unspecified
[2019-02-11] MEDS ORDERED: ONDANSETRON INJ 2 MG/ML 2 ML VIAL ONE (18:33)
[2019-02-11] MEDS ORDERED: ONDANSETRON INJ 2 MG/ML 2 ML VIAL IV PRN (19:17)
[2019-02-11] MEDS ORDERED: ACETAMINOPHEN 500 MG TAB PO PRN (19:17)
[2019-02-11] MEDS: NSS + 20MEQ KCL 20 MEQ/1,000 ML BAG IV SCH (19:32)
[2019-02-11] MEDS ORDERED: PROMETHAZINE HCL 6.25 MG in SODIUM CHLORIDE 0.9% 50 ML IV PRN (19:52)
[2019-02-11] MEDS ORDERED: ACETAMINOPHEN 65 ML IV PRN (20:00)
[2019-02-12] MEDS: metroNIDAZOLE 500 MG/100 ML BAG IV SCH ×3 (00:11→17:34)
[2019-02-12] MEDS: CIPROFLOXACIN 400 MG/200 ML BAG IV SCH ×2 (00:12→11:25)
[2019-02-12 05:50] LABS: Hematocrit (blood only) 38.5 % (42-52); Hemoglobin 13.7 g/dL (14.0-18.0); Mean Corpuscular Hgb Conc 35.6 g/dL (32-36); Mean Corpuscular Volume 90.2 fL (80-100); Platelet Count 178 K/uL (130-400); RDW Coefficient of Variation 12.9 % (11.5-14.5); RDW Standard Deviation 42.4 fL (36.4-46.3); Red Blood Count 4.27 M/uL (4.7-6.1); White Blood Count 6.26 K/uL (4.8-10.8)
[2019-02-12] MEDS: NSS + 20MEQ KCL 20 MEQ/1,000 ML BAG IV SCH ×2 (06:13→18:19)
[2019-02-12 06:17] LABS: Albumin Level 2.8 gm/dl (3.4-5.0); BUN Creatinine Ratio 8.4 (10-20); Calcium 7.9 mg/dl (8.5-10.1); Creatinine Clr Calc Pharmacy 150.9 ml/min; Est GFR (African American) 137.2; Est GFR (Non-African American) 118.4; Potassium 3.5 mmol/L (3.5-5.1)
[2019-02-12 06:19] LABS: Albumin Globulin Ratio 0.8 (0.9-2); Bilirubin,Total 0.5 mg/dl (0.2-1); Globulin 3.4 gm/dl (2.5-4.0); Total Protein 6.2 gm/dl (6.4-8.2)
[2019-02-12] MEDS ORDERED: MULTIVITAMIN TAB PO SCH (09:00)
--- NOTE | 2019-02-12 13:55 | Gastroenterology Progress Note ---
Date of Service February 12, 2019 Assessment & Plan (1) Colitis, acute: 24 year old acute gastroenteritis with colitis secondary to campylobacter infection. - Would hold on antibiotics because pt improving and because no blood in BMs. - No need for f/u GI care or colonoscopy, unless pt has recurrent episodes of colitis. Low suspicion of IBD. - Clear liquid diet. Advance as tolerated. - No GI contraindication to discharge. Supervising Physician Co-Signing Physician Notes I saw and evaluated the patient. His stool cultures did reveal Campylobacter. As the patient has been into the hospital on several occasions we would recommend antibiotic therapy for this. Please place the patient on azithromycin for 5 days. From our standpoint he probably can be discharged this afternoon unless there is another issue in the internal medicine standpoint. He should call our office with any questions or concerns should his symptoms not improve or return. Subjective Update - stool culture still pending but with few campylobacter. he tells me that his pain is much improved compared to time of admission. BMs now less frequent, thicker. Mr. Jovon Blancas is a 24 yr old male with abdominal pain sine 03/05, diarrhea, CT with colitis. WBC 6. C-diff (-). Blood and stool cx are pending. Review of Systems Review of Systems: ROS: Gen: Denies weakness, fevers, weight loss Eyes: No eye redness, or pain, no recent vision changes Resp: No SOB, no cough Cardio: No palpitations/irregular beats, no chest pain GI: + abdominal pain, + diarrhea, mild nausea no vomiting : Denies pain on urination Skin: No jaundice, itching or new rashes Physical Exam Constitutional: WD/WN, vitals as above Eyes: PERRL, conjunctivae normal, anicteric sclerae ENMT: external ear and nose normal, oropharynx normal Neck: trachea midline, no thyromegaly Respiratory: normal respiratory effort, lungs clear to auscultation Cardiovascular: RRR, no murmur, no edema Gastrointestinal (Abdomen): Percussion/Palpation: + abdomen tender (LLQ, w/o guarding) and abdomen soft Skin: no rashes, warm and dry Neurologic: PERRL, EOMI, accommodation nl, no face palsy, no dysarthria Psychiatric: A+Ox3, euthymic affect Lymphatic: no cervical or axillary lymphadenopathy Results & Data Vital Signs (Past 12 Hours) Vital Signs Temp Pulse Resp BP Pulse Ox 02/12/19 07:00 36.4 C L 67 16 130/77 97 02/12/19 05:35 36.[address] 02/11: 1. Mildly progressive colitis compared to the prior study. 2. Wall thickening is somewhat progressive throughout. 3. Appearance continues to be consistent with generalized nonspecific colitis. 4. No evidence for abscess collection or obstruction.
[2019-02-12 15:32] VITALS: BP 117/70; TEMP 97.7; O2SAT 98
[2019-02-12] MEDS ORDERED: AZITHROMYCIN 250 MG TAB PO SCH (17:30)
--- NOTE | 2019-02-12 18:00 | Hospitalist Progress Note ---
Date of Service February 12, 2019 Assessment & Plan (1) Nonspecific colitis: Secondary to Campylobacter jejuni Appreciate GI input and recommendation Present on Admission?: Yes (2) Fever: No fever and (3) Nausea and vomiting: This is a 24yo M with a PMH of psoriasis who is presenting with lower abdominal pain, fever, chills, nausea and vomiting x 5 days and was found to have non-specific colitis. -Febrile at 39.5, tachycardic at 117, non-toxic appearance -No leukocytosis, potassium slightly low at 3.3, LFTs unremarkable -CT abd/pelvis with mildly progressing colitis with wall thickening somewhat progressively throughout -Evaluated by GI service, who suspect infectious colitis -Stool cultures, C. diff, blood cultures ordered-stool culture grew Campylobac ter gradually -IV fluids (NSS + 20 mEq kcl), antiemetics, clear liquids as tolerated -Has been on Cipro and Flagyl -Discontinue antibiotics and started with azithromycin for 5 days in total as per GI recommendation (4) Psoriasis: Stelara injection Q3 months -Due in 10 days DVT Ppx: Teds Code status: FULL PCP: Unassigned Dispo: Observaton med/surg. Plan to return home once medically stable. Was advised to stay to make sure there is no electrolyte imbalance in the morning given ongoing diarrhea He had initially but later on he decided to go home and mentioned that he has not had diarrhea for the last 5 to 6 hours He was sent home and was advised to have an appointment with primary care doctor in 7 days Subjective /3 The patient was seen and examined medical floor Admitted with acute paranoid abdominal pain Says that the diarrhea is not not controlled in the morning and wanted to stay in the hospital for another night In the afternoon the diarrhea is resolved and wants to go home Review of Systems Gastrointestinal: + abdominal pain (Improved a lot), + cramping (Improved a lot) and + diarrhea/loose stools Physical Exam Physical Exam: No apparent distress at rest Constitutional: WD/WN, vitals as above + acute distress and + ill appearing Eyes: PERRL, conjunctivae normal, anicteric sclerae ENMT: external ear and nose normal, oropharynx normal Neck: trachea midline, no thyromegaly Respiratory: normal respiratory effort, lungs clear to auscultation Cardiovascular: RRR, no murmur, no edema Gastrointestinal (Abdomen): Inspection/Auscultation: abdomen normal to inspection and normal bowel sounds; abdomen not distended Percussion/Palpation: abdomen soft; no guarding, abdomen not rigid and no abdominal mass Skin: no rashes, warm and dry Neurologic: PERRL, EOMI, accommodation nl, no face palsy, no dysarthria Psychiatric: A+Ox3, euthymic affect Lymphatic: no cervical or axillary lymphadenopathy Results & Data Vital Signs (Past 12 Hours) Vital Signs Temp Pulse Resp BP Pulse Ox 02/12/19 15:31 36.5 C 65 18 117/70 98 02/12/19 07:00 36.4 C L 67 16 130/77 97 Laboratory Results Short CBC 02/12/19 Range/Units 05:32 WBC 6.26 (4.8-10.8) K/uL Hgb 13.7 L (14.0-18.0) g/dL Hct 38.5 L (42-52) % Plt Count 178 (130-400) K/uL BMP 02/12/19 05:32 Sodium 137 Potassium 3.5 Chloride 105 Carbon Dioxide 29 BUN 8 Creatinine 0.91 Glucose 107 H Calcium 7.9 L Liver Function 02/12/19 Range/Units 05:32 Total Bilirubin 0.5 (0.2-1) mg/dl AST 7 L (15-37) U/L ALT 16 (12-78) U/L Alkaline Phosphatase 41 L (45-117) U/L Albumin 2.8 L (3.4-5.0) gm/dl (1) Fever Fever type: unspecified Qualified Code(s): R50.9 - Fever, unspecified (2) Nausea and vomiting Vomiting Intractability: intractable Vomiting type: unspecified Qualified Code(s): R11.2 - Nausea with vomiting, unspecified
[2019-02-12 18:11] VITALS: PULSE 95
--- NOTE | 2019-02-13 08:37 | Discharge Summary ---
Date of Service February 13, 2019 Admission HPI Per Admitting Provider This is a 24yo M with a PMH of psoriasis who is presenting with lower abdominal pain, fever, chills, nausea and vomiting x 5 days. Patient developed sudden onset symptoms of fever and diarrhea 5 days ago, followed by nausea, vomiting and cramping abdominal pain. Episodes of emesis are bilious and diarrhea is described as clear, no blood or mucus. Experiencing cramping lower abdominal pain that is worse prior to defecation and then improves. Was seen in ED 2 days ago and was given IV fluids and antiemetics. [place] better yesterday until 9pm, when fever returned. Endorsing 25 small episodes of diarrhea since last night. Presenting with fever of 39.5 and tachycardia of 117. No leukocytosis. Repeat CT abd/pelvis with mildly progressing colitis with wall thickening somewhat progressively throughout. Non-specific colitis, no evidence of abscess or obstruction. Was evaluated by GI service, who want to observe patient overnight and hydrate while obtaining stool and c. diff cultures. Feel that most likely this is infectious enterocolitis. Denies lightheadedness, headache, cough, chest pain, SOB, dysuria. Admission Exam Per Admitting Provider Physical Exam: General Appearance: WD/WN, appears acutely ill Head: normocephalic, atraumatic Eyes: normal inspection, PERRL, EOMI ENT: hearing grossly normal, pharynx normal (dry mucous membranes) Neck: supple, no JVD, no adenopathy Respiratory/Chest: lungs clear to auscultation. No wheezes, rales or rhonci. No respiratory distress or accessory muscle use Cardiovascular: regular rate, rhythm, no murmur, normal peripheral pulses Abdomen/GI: normal bowel sounds, soft, tender to palpation in LLQ, RLQ. No guarding Extremities/Musculoskelatal: normal inspection, no calf tenderness, normal capillary refill, no pedal edema Neurologic/Psych: alert, normal mood/affect, oriented x 3 Skin: normal color, warm/dry Principal Diagnosis Campylobacter jejuni infection Discharge Exam Constitutional WD/WN, vitals as above + acute distress and + ill appearing Eyes PERRL, conjunctivae normal, anicteric sclerae ENMT external ear and nose normal, oropharynx normal Neck trachea midline, no thyromegaly Respiratory normal respiratory effort, lungs clear to auscultation Cardiovascular RRR, no murmur, no edema Gastrointestinal (Abdomen) Inspection/Auscultation: abdomen normal to inspection and normal bowel sounds; abdomen not distended Percussion/Palpation: abdomen soft; no guarding, abdomen not rigid and no abdominal mass Skin no rashes, warm and dry Neurologic PERRL, EOMI, accommodation nl, no face palsy, no dysarthria Psychiatric A+Ox3, euthymic affect Lymphatic no cervical or axillary lymphadenopathy Discharge Data Allergies Allergy/AdvReac Type Severity Reaction Status Date / Time No Known Allergies Allergy Unverified 02/11/19 14:45 Consultations 02/11/19 15:45 ED Decision to Admit Stat 02/11/19 19:17 Consult Gastroenterology Routine Ordered Studies 02/11/19 13:12 CT abd pelvis IV con only Stat Hospital Course (1) Nonspecific colitis: Secondary to Campylobacter jejuni Appreciate GI input and recommendation (2) Fever: No fever and (3) Nausea and vomiting: This is a 24yo M with a PMH of psoriasis who is presenting with lower abdominal pain, fever, chills, nausea and vomiting x 5 days and was found to have non-specific colitis. -Febrile at 39.5, tachycardic at 117, non-toxic appearance -No leukocytosis, potassium slightly low at 3.3, LFTs unremarkable -CT abd/pelvis with mildly progressing colitis with wall thickening somewhat progressively throughout -Evaluated by GI service, who suspect infectious colitis -Stool cultures, C. diff, blood cultures ordered-stool culture grew Campylobacter gradually -IV fluids (NSS + 20 mEq kcl), antiemetics, clear liquids as tolerated -Has been on Cipro and Flagyl -Discontinue antibiotics and started with azithromycin for 5 days in total as per GI recommendation (4) Psoriasis: Stelara injection Q3 months -Due in 10 days DVT Ppx: Teds Code status: FULL PCP: Unassigned Dispo: Observaton med/surg. Plan to return home once medically stable. Was advised to stay to make sure there is no electrolyte imbalance in the morning given ongoing diarrhea He had initially but later on he decided to go home and mentioned that he has not had diarrhea for the last 5 to 6 hours He was sent home and was advised to have an appointment with primary care doctor in 7 days Total Time Total Time Spent Total Time Spent (In Minutes): 35 minutes Total Time Includes: Examination of the Patient, Discharge Planning, Medication Reconciliation and Communication With Other Providers Discharge Plan Discharge Items Patient Disposition: Home - Self-Care Reason For Visit: NON-SPECIFIC COLITIS Discharge Diagnosis: Campylobacter jejuni infection Condition: Good Discharge Goals: Decrease discomfort, Improve function and Increase independence Activity: Resume your previous activity Non-emergency contact: Primary Care Provider Call non-emergency contact if: you have any medication questions and your symptoms worsen Follow-up/Referrals: PCP,NO [Primary Care Provider] - (Please make an appointment with your primary care doctor in 1 week) Diet: Regular Addtl Provider Instructions: Maintain good hygiene Prescriptions: New azithromycin 500 mg tablet 500 mg PO DAILY 144 Days Qty: 144 RF: 0 Continued acetaminophen [Tylenol Extra Strength] 500 mg Tablet 1,000 mg PO TID PRN (Reason: Fever Or Pain) RF: 0 Stelara 45 mg/0.5 mL syringe 1 dose subcut Q3M RF: 0 multivitamin Tablet 1 tab PO QAM RF: 0 loperamide [Imodium A-D] 1 mg/7.5 mL Liquid 2 mg PO UD PRN (Reason: Diarrhea) RF: 0 ondansetron 4 mg tablet,disintegrating 4 mg PO Q8H PRN (Reason: nausea and vomiting) Qty: 10 RF: 0 Stand-Alone Forms: [facility] Discharge Orders: Discharge Order (Routine); Ordered 02/12/19 Ordered By: Dasha Yin Admission Data Admit Date/Time: 02/11/19 16:45 Attending Provider: Dasha Yin Admit Provider: Ricardo Stevens Primary Care Provider: PCP,NO Other Providers: Robbie Patterson Satish K Service: Surgical Services Other Interventions: Discharge Summary Assessment (RN) Last Done: 02/12/19 18:06 DC Date/Time DO NOT enter until pt leaves facility: 02/12/19 18:29
--- NOTE | 2019-02-13 12:46 | Pharmacy Report ---
ED Pharmacist Culture FollowUP - Culture Follow Up Note Date of Service: February 13, 2019 Notes:: stool cx growing campy jejuni. this patient was admitted and treated for campy jejuni with zithromax. [facility] no action required from ed perspective
--- NOTE | 2019-02-16 09:03 | Hospitalist Progress Note ---
Date of Service February 16, 2019 Subjective Received call from microbiology Lab : Patient Jovon's [facility]: Discharged by Dr. Yin on 02/11/2019 Blood culture obtained on 02/11/2019: Growing Campylobacter jejuni Dr. Yin will be updated regarding the result -to adjustment of Antibiotic if needed Candace Villarreal MD
== END 2019-02-12 18:29 | disposition home or self-care (01) ==
LOC: ED 12:22 → 3N 12:22